=== PATIENT | male | born 1940 | race Caucasian/White ===

== ENCOUNTER → 2019-02-14 | Outpatient (CLI) | payer MEDICARE ==
[~2019-02-14] MED LIST: OMNIPAQUE 350 MG/ML, 100ML BOTTLE ONE
== END | disposition home or self-care (01) ==
LOC: RAD 09:32
PROVIDERS: ATTEND Internal Medicine Cardiovascular Disease
DX: I25.10 Atherosclerotic heart disease of native coronary artery without angina pectoris (principal); I35.0 Nonrheumatic aortic (valve) stenosis; I70.0 Atherosclerosis of aorta; I51.7 Cardiomegaly; Z87.891 Personal history of nicotine dependence
CPT/HCPCS: 71275; 74174; Q9967

== ENCOUNTER 2019-04-09 10:17 | Outpatient (CLI) | payer MEDICARE ==
[~2019-04-09 10:17] MED LIST changes: +ACET325T26 PO; +ASPI81TA45 PO; +ATOR20TA37 PO; +CLOP75TA PO; +METO50TA82 PO; -OMNIPAQUE 350 MG/ML, 100ML BOTTLE ONE; +TERA1CAP3 PO
== END 2019-04-09 23:59 | disposition home or self-care (01) ==
LOC: CVU 10:17
PROVIDERS: ATTEND Internal Medicine Cardiovascular Disease
DX: I34.8 Other nonrheumatic mitral valve disorders (principal); I11.9 Hypertensive heart disease without heart failure; I65.29 Occlusion and stenosis of unspecified carotid artery; R06.02 Shortness of breath; Z95.2 Presence of prosthetic heart valve
CPT/HCPCS: 93306